=== PATIENT | male | born 1975 | race Two or more races ===

== ENCOUNTER 2017-04-09 21:05 | Emergency (ER) | payer SELFPAY ==
[2017-04-09 21:28] VITALS: BP 146/85; PULSE 108; TEMP 101.7; BMI 30.2
[2017-04-09] MEDS ORDERED: IBUPROFEN 600 MG TABLET (FP) PO ONE ×2 (22:23→22:25)
--- NOTE | 2017-04-09 22:29 | PDOC ---
History of Present Illness - General Chief Complaint: Sore Throat Stated Complaint: PAIN Time Seen by Provider: 04/09/17 22:02 History Source: Patient Exam Limitations: No Limitations - History of Present Illness Initial Comments: 04/09/17 22:29 CHIEF COMPLAINT: Fever HISTORY OF PRESENT ILLNESS: This is an otherwise healthy 42 year old male who presents for evaluation of subjective fever, headache, and throat pain since last night. He denies difficulty breathing, neck pain/stiffness, n/v/d, or any other symptoms. He denies recent travel and known sick contacts. V/s on arrival are notable for T 101.7 and P 108. REVIEW OF SYSTEMS: GENERAL/CONSTITUTIONAL: Subjective fevers. No weakness. No weight change. HEAD, EYES, EARS, NOSE AND THROAT: Throat pain, bilateral ear pain, painful swallowing. CARDIOVASCULAR: No chest pain or palpitations. RESPIRATORY: No cough, wheezing, or shortness of breath. GASTROINTESTINAL: No nausea, vomiting, diarrhea or constipation. GENITOURINARY: No dysuria, frequency, or change in urination. MUSCULOSKELETAL: No joint or muscle swelling or pain. No neck or back pain. SKIN: No rash or easy bruising. NEUROLOGIC: No headache, vertigo, loss of consciousness, or loss of sensation. ALLERGIC/IMMUNOLOGIC: No hives or skin allergy. No latex allergy. PHYSICAL EXAM: GENERAL: The patient is awake, alert, and fully oriented, in no acute distress. ENT: Tonsils 3+ and erythematous with yellow exudate. Uvula midline. No drooling , stridor, or hot potato voice. LUNGS: Clear to auscultation bilaterally. Normal excursion. No respiratory distress or use of accessory muscles. CV: RRR, S1/S2, no MRG. Cap refill < 2 sec. ABDOMEN: Soft, non-distended, non-tender. EXTREMITIES: Normal range of motion, no edema. NEUROLOGICAL: Normal speech, normal gait. CN II-XII grossly intact. PSYCH: Normal mood, normal affect. SKIN: Warm, dry, normal turgor, no rashes or lesions noted. Past History - Past Medical History Allergies/Adverse Reactions: Allergies Allergy/AdvReac Type Severity Reaction Status Date / Time No Known Allergies Allergy Verified 04/09/17 21:25 Home Medications: Ambulatory Orders Ibuprofen 600 mg PO Q6H PRN #30 tablet 04/09/17 Other medical history: Pt denies - Psycho/Social/Smoking Cessation Hx Suicidal Ideation: No Smoking History: Never smoked Have you smoked in the past 12 months: No Information on smoking cessation initiated: No Hx Alcohol Use: No Drug/Substance Use Hx: No Substance Use Type: None *Physical Exam - Vital Signs Last Vital Signs Temp Pulse Resp BP Pulse Ox 101.7 F H 108 H 20 146/85 98 04/09/17 21:26 04/09/17 21:26 04/09/17 21:26 04/09/17 21:26 04/09/17 21:26 Medical Decision Making - Medical Decision Making 04/09/17 23:32 gitis.A/P: 42 year old male with tonsillitis/pharyngitis. -Rapid strep positive -Bicillin 1.2 million units IM -Decadron 10mg PO x 1 for tonsillar swelling -Ibuprofen 600mg PO for pain/fever *DC/Admit/Observation/Transfer Diagnosis at time of Disposition: Strep throat - Discharge Dispostion Disposition: HOME Condition at time of disposition: Improved Admit: No - Prescriptions Prescriptions: Ibuprofen 600 mg PO Q6H PRN #30 tablet PRN Reason: Fever Or Pain - Referrals Referrals: Fozia Tristan MD [Staff Physician] - - Patient Instructions Printed Discharge Instructions: DI for Strep Throat Additional Instructions: -You were given a one-time dose of antibiotics and steroids for strep throat -Take ibuprofen as prescribed for fever and pain -Follow up with a primary care doctor (referral enclosed) -Return here if you are unable to swallow fluids, if you have difficulty breathing, or if you have any other concerning symptoms Print Language: YI - Post Discharge Activity Work/School Note: Back to Work
[2017-04-09] MEDS ORDERED: PENICILLIN G BENZATHINE 1,200,000 UNIT/2 ML PFS IM ONE (22:52)
[2017-04-09] MEDS ORDERED: DEXAMETHASONE LIQUID 0.5 MG/5 ML 240 ML BULK BOTTLE PO ONE (22:52)
[2017-04-09] MEDS ORDERED: PENICILLIN G BENZATHINE 2,400,000 UNIT/4 ML PFS ONE (22:53)
[2017-04-09] MEDS ORDERED: DEXAMETHASONE SOD PHOSPHATE 10 MG/1 ML VIAL ONE (22:57)
== END 2017-04-09 23:05 | disposition home or self-care (01) ==
LOC: JERFT 21:05
DX: J02.0 Streptococcal pharyngitis (principal); B95.0 Streptococcus, group A, as the cause of diseases classified elsewhere
CPT/HCPCS: 87070; 87430; 87804; 99281-25

== ENCOUNTER 2017-04-15 19:47 | Inpatient (IN) | payer MEDICARE ==
[2017-04-15] MEDS ORDERED: ACETAMINOPHEN 1000 MG/100 ML VIAL (NON FORMULARY) IVPB ONE (20:33)
[2017-04-15] MEDS ORDERED: ACETAMINOPHEN INJECTION 100 ML IVPB ONE (20:41)
[2017-04-15 20:44] LABS: BASOPHIL 0.4 % (0-2.0); EOSINOPHIL 0.5 % (0-4.5); MCH 30.6 pg (25.7-33.7); MCHC 34.6 g/dl (32.0-35.9); MEAN CELL VOLUME 88.5 fl (80-96); MEAN PLT VOLUME 8.9 fl (7.5-11.1); NEUTROPHILS 81.3 % (42.8-82.8); PLATELET COUNT 231 K/MM3 (134-434); RDW 12.2 % (11.9-15.9); WHITE BLOOD COUNT 10.6 K/mm3 (4.0-10.0)
[2017-04-15] MEDS ORDERED: SODIUM CHLORIDE 1,000 ML IV STA (21:24)
--- NOTE | 2017-04-15 21:25 | PDOC ---
History of Present Illness <Roseyln Soto - Last Filed: 04/16/17 01:28> <Garfield Simms - Last Filed: 04/16/17 04:26> - History of Present Illness Initial Comments: 04/15/17 21:24 "The patient is a 42 year old male, with no significant past medical history, who was recently seen in the ED on 04/09/17 for fever and sore throat (given Bicillin and Decadron for a + rapid strep test), who presents to the emergency room tonight, 6 days later, with a persistent fever, sore throat, and right sided neck pain. He reports that the sore throat is exacerbated when swallowing. The patient states that he has been taking ibuprofen for the pain, which hasn't provided any relief. He denies any drooling or voice changes. No difficulty swallowing or breathing. Denies chest pain, SOB, cough. Denies nausea, vomiting. Denies back pain. Denies rash. 04/16/17 03:36 <Sylvester Robert - Last Filed: 04/18/17 14:36> - General Chief Complaint: Pain, Acute Stated Complaint: NECK PAIN/ HEADACHE Time Seen by Provider: 04/15/17 20:08 Past History <Roselyn Soto - Last Filed: 04/16/17 01:28> <Garfield Simms - Last Filed: 04/16/17 04:26> - Suicide/Smoking/Psychosocial Hx Smoking History: Never smoked Have you smoked in the past 12 months: No Information on smoking cessation initiated: No Hx Alcohol Use: No Drug/Substance Use Hx: No Substance Use Type: None <Sylvester Robert - Last Filed: 04/18/17 14:36> - Past Medical History Allergies/Adverse Reactions: Allergies Allergy/AdvReac Type Severity Reaction Status Date / Time No Known Allergies Allergy Verified 04/09/17 21:25 Home Medications: Ambulatory Orders Ibuprofen 600 mg PO Q6H PRN #30 tablet 04/09/17 Miscellaneous Medical Supply [Outpatient Order] 1 each ASDIR #1 misc Review of Systems - Review of Systems Comments:: 04/15/17 21:47 "GENERAL/CONSTITUTIONAL: +fever,. No weakness. HEAD, EYES, EARS, NOSE AND THROAT: +sore throat. No change in vision. No ear pain or discharge. CARDIOVASCULAR: No chest pain or shortness of breath. RESPIRATORY: No cough, wheezing, or hemoptysis. GASTROINTESTINAL: No nausea, vomiting, diarrhea or constipation. GENITOURINARY: No dysuria, frequency, or change in urination. MUSCULOSKELETAL: +left neck pain that radiates to the left side of the head behind the ear. No back pain. SKIN: No rash NEUROLOGIC: No headache, vertigo, loss of consciousness, or change in strength/ sensation. ENDOCRINE: No increased thirst. No abnormal weight change. HEMATOLOGIC/LYMPHATIC: No anemia, easy bleeding, or history of blood clots. ALLERGIC/IMMUNOLOGIC: No hives or skin allergy. " <Sylvester Robert - Last Filed: 04/18/17 14:36> *Physical Exam - Vital Signs Last Vital Signs Temp Pulse Resp BP Pulse Ox 100 F H 125 H 19 114/80 98 04/15/17 19:51 04/15/17 19:51 04/15/17 19:51 04/15/17 19:51 04/15/17 19:51 <Roselyn Soto - Last Filed: 04/16/17 01:28> - Vital Signs Last Vital Signs Temp Pulse Resp BP Pulse Ox 97.8 F 66 18 116/67 99 04/16/17 02:35 04/16/17 02:35 04/16/17 02:35 04/16/17 02:35 04/16/17 02:35 <Garfield Simms - Last Filed: 04/16/17 04:26> - Vital Signs Last Vital Signs Temp Pulse Resp BP Pulse Ox 100 F H 125 H 19 114/80 98 04/15/17 19:51 04/15/17 19:51 04/15/17 19:51 04/15/17 19:51 04/15/17 19:51 - Physical Exam Comments: 04/15/17 21:47 "GENERAL: Awake, alert, and fully oriented, in no acute distress HEAD: No signs of trauma EYES: PERRLA, EOMI, sclera anicteric, conjunctiva clear ENT: +posterior oropharynx with white exudates. Midline uvula. No peritonsillar masses. Auricles normal inspection, TMs normal, hearing grossly normal, nares patent, Moist mucosa, NO mastoid TTP NECK: +cervical lymphadenopathy. No fluctuance. Nontender, no stepoffs, Normal ROM, supple, JVD, or masses LUNGS: Breath sounds equal, clear to auscultation bilaterally. No wheezes, and no crackles HEART: Regular rate and rhythm, normal S1 and S2, no murmurs, rubs or gallops ABDOMEN: Soft, nontender, normoactive bowel sounds. No guarding, no rebound. No masses EXTREMITIES: Normal range of motion, no edema. No clubbing or cyanosis. No cords, erythema, or tenderness NEUROLOGICAL: Cranial nerves II through XII intact. 5/5 strength and sensation in all extremities, Normal speech, normal gait SKIN: Warm, Dry, normal turgor, no rashes or lesions noted." <JakobSylvester - Last Filed: 04/18/17 14:36> ED Treatment Course - LABORATORY CBC & Chemistry Diagram: 04/15/17 20:40 04/15/17 20:40 - ADDITIONAL ORDERS Additional order review: Laboratory Results 04/15/17 20:40 Sodium 135 L Potassium 4.0 Chloride 104 Carbon Dioxide 25 Anion Gap 6 L BUN 15 Creatinine 0.9 Creat Clearance w eGFR > 60 Random Glucose 132 H Calcium 8.1 L Total Bilirubin 0.4 AST 38 H ALT 72 Alkaline Phosphatase 174 H Total Protein 6.9 Albumin 3.0 L 04/15/17 23:00 Group A Strep Rapid Antigen - Final Throat 04/15/17 20:40 RBC 4.27 MCV 88.5 MCHC 34.6 RDW 12.2 MPV 8.9 Neutrophils % 81.3 Lymphocytes % 9.3 Monocytes % 8.5 Eosinophils % 0.5 Basophils % 0.4 - RADIOLOGY Radiograph Interpretation: 04/16/17 01:28 EXAM: CT neck with contrast No abscess. Mild diffuse oropharyngeal soft tissue thickening. Right thyroid lobe is enlarged relative and heterogeneous to the left and there is suggestion of trace nonspecific fluid surrounding right. Thyroid sonogram may be helpful as clinically indicated. Query thyroiditis. Epiglottis not thickened. No neck mass. No lymphadenopathy. Parotid and submandibular glands are normal. Major vasculature of the neck is patent. Bones without acute abnormality. Visualized paranasal sinuses and mastoids clear. THIS DOCUMENT HAS BEEN ELECTRONICALLY SIGNED Balaji Elliott D.O. 04/16/2017 01:19 EST - Medications Given in the ED: ED Medications Discontinued Medications Generic Name Dose Route Start Last Admin Trade Name Val PRN Reason Stop Dose Admin Acetaminophen 1,000 mg 04/15/17 20:33 04/15/17 20:41 Ofirmev Injection - IVPB 04/15/17 20:34 1,000 mg ONCE ONE Administration Sodium Chloride 1,000 mls @ 1,000 mls/hr 04/15/17 21:24 04/15/17 21:29 Normal Saline - IV 04/15/17 22:23 1,000 mls/hr ASDIR STA Administration <Roselyn Soto - Last Filed: 04/16/17 01:28> - LABORATORY CBC & Chemistry Diagram: 04/15/17 20:40 04/15/17 20:40 - ADDITIONAL ORDERS Additional order review: Laboratory Results 04/15/17 20:40 Sodium 135 L Potassium 4.0 Chloride 104 Carbon Dioxide 25 Anion Gap 6 L BUN 15 Creatinine 0.9 Creat Clearance w eGFR > 60 Random Glucose 132 H Calcium 8.1 L Total Bilirubin 0.4 AST 38 H ALT 72 Alkaline Phosphatase 174 H Total Protein 6.9 Albumin 3.0 L 04/15/17 23:00 Group A Strep Rapid Antigen - Final Throat 04/15/17 20:40 RBC 4.27 MCV 88.5 MCHC 34.6 RDW 12.2 MPV 8.9 Neutrophils % 81.3 Lymphocytes % 9.3 Monocytes % 8.5 Eosinophils % 0.5 Basophils % 0.4 - Medications Given in the ED: ED Medications Discontinued Medications Generic Name Dose Route Start Last Admin Trade Name Val PRN Reason Stop Dose Admin Acetaminophen 1,000 mg 04/15/17 20:33 04/15/17 20:41 Ofirmev Injection - IVPB 04/15/17 20:34 1,000 mg ONCE ONE Administration Dexamethasone Sodium Phosphate 10 mg 04/16/17 01:26 04/16/17 01:53 Decadron Injection - IVPUSH 04/16/17 01:27 10 mg ONCE ONE Administration Sodium Chloride 1,000 mls @ 1,000 mls/hr 04/15/17 21:24 04/15/17 21:29 Normal Saline - IV 04/15/17 22:23 1,000 mls/hr ASDIR STA Administration Clindamycin Phosphate 300 mg/ 50 mls @ 100 mls/hr 04/16/17 01:42 04/16/17 01:53 Dextrose IVPB 04/16/17 02:11 100 mls/hr ONCE ONE Administration <Garfield Simms - Last Filed: 04/16/17 04:26> - LABORATORY CBC & Chemistry Diagram: 04/17/17 06:35 04/16/17 06:00 - ADDITIONAL ORDERS Additional order review: 04/15/17 20:40 RBC 4.27 MCV 88.5 MCHC 34.6 RDW 12.2 MPV 8.9 Neutrophils % 81.3 Lymphocytes % 9.3 Monocytes % 8.5 Eosinophils % 0.5 Basophils % 0.4 - RADIOLOGY Radiology Studies Ordered: Category Date Time Status SOFT TISSUE NECK CT WITH CONTR [CT] Stat CT Scan 04/15/17 20:33 Ordered - Medications Given in the ED: ED Medications Discontinued Medications Generic Name Dose Route Start Last Admin Trade Name Freq PRN Reason Stop Dose Admin Acetaminophen 1,000 mg 04/15/17 20:33 04/15/17 20:41 Ofirmev Injection - IVPB 04/15/17 20:34 1,000 mg ONCE ONE Administration <Sylvester Robert - Last Filed: 04/18/17 14:36> Medical Decision Making - Medical Decision Making 04/16/17 04:10 Microblogged Hospitalist & called 3x with no response. Awaiting callback. <Garfield Simms - Last Filed: 04/16/17 04:26> - Medical Decision Making 04/15/17 21:48 42 M with strep pharyngitis diagnosed 6 days ago, presenting with persistent throat pain and fevers despite treatment with bicillin. Pt febrile here. Will need imaging to r/o abscess given persistent symptoms after tx. - Labs - CT neck soft tissue 04/16/17 03:06 CT neck with no evidence of abscess. However, R thyroid lobe is found to be enlarged, heterogeneous, concerning for thyroiditis. Given context of fevers and neck pain, I am concerned for infectious thyroiditis. Pt started on IV clindamycin. Will admit for IV abx and reassessment. Will likely need thyroid US. 04/16/17 05:[address] Burris, pt accepted for admission. Case discussed in detail with admitting physician including history, physical exam and ancillary studies. Admitting physician has assumed care for the patient and will follow all pending diagnostics and complete the evaluation and treatment. <Sylvester Robert - Last Filed: 04/18/17 14:36> *DC/Admit/Observation/Transfer <Roselyn Soto - Last Filed: 04/16/17 01:28> <Garfield Simms - Last Filed: 04/16/17 04:26> <Sylvester Robert - Last Filed: 04/18/17 14:36> Diagnosis at time of Disposition: Thyroiditis - Discharge Dispostion Disposition: HOME Condition at time of disposition: Improved - Prescriptions
[2017-04-15 21:31] LABS: ANION GAP 6 (8-16); CALCIUM 8.1 mg/dL (8.5-10.1); CO2 25 mmol/L (21-32); GLUCOSE,RANDOM 132 mg/dL (74-106)
[2017-04-15 21:34] LABS: ALK PHOS 174 U/L (45-117); BILIRUBIN,TOTAL 0.4 mg/dL (0.2-1.0); CREATININE 0.9 mg/dL (0.7-1.3); SGOT/AST 38 U/L (15-37); SGPT/ALT 72 U/L (12-78); TOT PROT 6.9 g/dl (6.4-8.2)
[2017-04-16] MEDS ORDERED: DEXAMETHASONE SOD PHOSPHATE 10 MG/1 ML VIAL IVPUSH ONE (01:26)
[2017-04-16] MEDS ORDERED: CLINDAMYCIN IVPB 300 MG in DEXTROSE 5%-WATER - 48 ML IVPB ONE (01:42)
[2017-04-16] MEDS ORDERED: CLINDAMYCIN 600MG PREMIX IVPB 50 ML IVPB ONE (01:47)
[2017-04-16] MEDS ORDERED: DEXAMETHASONE SOD PHOSPHATE 10 MG/1 ML VIAL ONE (01:47)
[2017-04-16] MEDS ORDERED: ACETAMINOPHEN 325 MG TABLET (FP) PO PRN (05:53)
[2017-04-16] MEDS: SODIUM CHLORIDE 1,000 ML IV SCH ×2 (06:08→17:15)
--- NOTE | 2017-04-16 06:08 | HP ---
CHIEF COMPLAINT: Neck pain and fever x 2 weeks PCP: NONE HISTORY OF PRESENT ILLNESS: 42 year old male that presents to the emergency department c/o right sided neck pain, difficulty swallowing and chills x approximately 2 weeks. He was seen on 04/09 in the ED, diagnosed with strep throat by rapid test and given Bicillin and Decadron with instructions to follow up as outpatient. He now comes back with persistent fever . 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 Family History: no history of premature CAD Allergies No Known Allergies Allergy (Verified 04/09/17 21:25) HOME MEDICATIONS: Home Medications Medication Instructions Recorded Ibuprofen 600 mg PO Q6H PRN #30 tablet 04/09/17 REVIEW OF SYSTEMS CONSTITUTIONAL: Absent: loss of appetite, weight change HEENT: see HPI CARDIOVASCULAR: Absent: chest pain, syncope, palpitations, irregular heart rate, lightheadedness , peripheral edema RESPIRATORY: Absent: cough, shortness of breath, dyspnea with exertion, orthopnea, wheezing, stridor, hemoptysis GASTROINTESTINAL: Absent: abdominal pain, abdominal distension, nausea, vomiting, diarrhea, constipation, melena, hematochezia GENITOURINARY: Absent: dysuria, frequency, urgency, hesitancy, hematuria, flank pain, genital pain MUSCULOSKELETAL: Absent: myalgia, arthralgia, joint swelling, back pain, neck pain SKIN: Absent: rash, itching, pallor HEMATOLOGIC/IMMUNOLOGIC: Absent: easy bleeding, easy bruising, lymphadenopathy, frequent infections ENDOCRINE: Absent: unexplained weight gain, unexplained weight loss, heat intolerance, cold intolerance NEUROLOGIC: Absent: headache, focal weakness or paresthesias, dizziness, unsteady gait, seizure, mental status changes, bladder or bowel incontinence PSYCHIATRIC: Absent: anxiety, depression, suicidal or homicidal ideation, hallucinations. PHYSICAL EXAMINATION Vital Signs - 24 hr 04/15/17 04/16/17 19:51 02:35 Temperature 100 F H 97.8 F Pulse Rate 125 H Pulse Rate [ 66 Right Apical] Respiratory 19 18 Rate Blood Pressure 114/80 Blood Pressure 116/67 [Right Arm] O2 Sat by Pulse 98 99 Oximetry (%) HEAD: No signs of trauma EYES: PERRLA, EOMI, sclera anicteric, conjunctiva clear ENT: +posterior oropharynx with white exudates. Midline uvula. No peritonsillar masses. Auricles normal inspection, TMs normal, hearing grossly normal, nares patent, Moist mucosa, NO mastoid TTP NECK: +cervical lymphadenopathy. No fluctuance. Nontender, no stepoffs, Normal ROM, supple, JVD, or masses LUNGS: Breath sounds equal, clear to auscultation bilaterally. No wheezes, and no crackles HEART: Regular rate and rhythm, normal S1 and S2, no murmurs, rubs or gallops ABDOMEN: Soft, nontender, normoactive bowel sounds. No guarding, no rebound. No masses EXTREMITIES: Normal range of motion, no edema. No clubbing or cyanosis. No cords, erythema, or tenderness NEUROLOGICAL: Cranial nerves II through XII intact. 5/5 strength and sensation in all extremities, Normal speech, normal gait SKIN: Warm, Dry, normal turgor, no rashes or lesions noted. Laboratory Results - last 24 hr 04/15/17 04/15/17 20:40 20:40 WBC 10.6 H RBC 4.27 Hgb 13.1 Hct 37.8 MCV 88.5 MCH 30.6 MCHC 34.6 RDW 12.2 Plt Count 231 MPV 8.9 Neutrophils % 81.3 Lymphocytes % 9.3 Monocytes % 8.5 Eosinophils % 0.5 Basophils % 0.4 Sodium 135 L Potassium 4.0 Chloride 104 Carbon Dioxide 25 Anion Gap 6 L BUN 15 Creatinine 0.9 Creat Clearance w eGFR > 60 Random Glucose 132 H Calcium 8.1 L Total Bilirubin 0.4 AST 38 H ALT 72 Alkaline Phosphatase 174 H Total Protein 6.9 Albumin 3.0 L EXAM: CT neck with contrast No abscess. Mild diffuse oropharyngeal soft tissue thickening. Right thyroid lobe is enlarged relative and heterogeneous to the left and there is suggestion of trace nonspecific fluid surrounding right. Thyroid sonogram may be helpful as clinically indicated. Query thyroiditis. Epiglottis not thickened. No neck mass. No lymphadenopathy. Parotid and submandibular glands are normal. Major vasculature of the neck is patent. Bones without acute abnormality. Visualized paranasal sinuses and mastoids clear. ASSESSMENT/PLAN: 1. Acute infectious thyroididtis - suspected to be streptococcal etiology. Failure of treatment and progressed despite treatment with IM Bicillin . - pain control with PRN tylenol - IV clindamycin - blood cultures - ENT evaluation - US thyroid - IV fluids 2. Streptococcal Pharyngitis 3. SIRS/fever 2/2 above Due to failure of treatment with outpatient IM antibiotics , progression of the disease despite outpatient treatment and plan of care that includes frequent administration of IV clindamycin, anticipated length of hospitalization is greater then two midnights. Will admit as an inpatient . Visit type - Emergency Visit Emergency Visit: Yes ED Registration Date: 04/16/17 Care time: The patient presented to the Emergency Department on the above date and was hospitalized for further evaluation of their emergent condition. - New Patient This patient is new to me today: Yes Date on this admission: 04/16/17 - Critical Care Critical Care patient: No
[2017-04-16 06:12] LABS: MCH 30.9 pg (25.7-33.7); MCHC 34.4 g/dl (32.0-35.9); MEAN CELL VOLUME 89.8 fl (80-96); MEAN PLT VOLUME 9.2 fl (7.5-11.1); PLATELET COUNT 235 K/MM3 (134-434); RDW 12.6 % (11.9-15.9); WHITE BLOOD COUNT 6.5 K/mm3 (4.0-10.0)
[2017-04-16 06:38] LABS: ANION GAP 8 (8-16); CALCIUM 8.5 mg/dL (8.5-10.1); CO2 22 mmol/L (21-32); CREATININE 0.6 mg/dL (0.7-1.3); GLUCOSE,RANDOM 178 mg/dL (74-106)
[2017-04-16 07:54] VITALS: BMI 29.9
[2017-04-16] MEDS ORDERED: FLU VACCINE QUAD 60 MCG/0.5 ML (MDV 17-18) IM ONE (10:00)
[2017-04-16] MEDS ORDERED: CLINDAMYCIN 600MG PREMIX IVPB 50 ML IVPB SCH (10:00)
--- NOTE | 2017-04-16 10:15 | PN ---
Progress Note (short form) - Note Progress Note: ID This 42 year old [place] male presents with right ant cervical neck pain. On he was seen in our ER with fever above 101 and exudative tonsillitis. His rapid strep test positive but culture negative at that time. he got Bicillin injection per [employer] followed by oral antibiotic and sent home. His throat pain improved but now he presents with right neck pain with no fever and normal WBC count. Denies other medical problems. LIves with his brother and roommates HIV status unknown. CT neck shows thyromegaly. Selected Entries 04/15/17 04/16/17 04/16/17 19:51 02:35 05:50 Temperature 97.8 F 98 F Pulse Rate 125 H Blood Pressure 114/80 O2 Sat by Pulse 98 Oximetry (%) 04/16/17 07:46 Temperature 99.4 F Pulse Rate Blood Pressure O2 Sat by Pulse Oximetry (%) HEENT Throat appeared benign Neck supple with fullness right cervical area no mass or nodes appreciated Lung Clear Cor S1 S2 RR Abd Soft nontender Laboratory Tests 04/15/17 04/16/17 04/16/17 20:40 06:00 06:00 WBC 6.5 D Hgb 13.5 Plt Count 235 BUN 10 D Creatinine 0.6 L D AST 38 H ALT 72 Alkaline Phosphatase 174 H Assessment Recent Strep Ag positive ( culture) Thromegaly with new onset of ? thyroid pain Plan PCN VK 500mg qid CRP TSH ESR HIV AB ENT consult stop Clindayaudra Coe MD Problem List - Problems (1) Strep throat Code(s): J02.0 - STREPTOCOCCAL PHARYNGITIS (2) Thyroiditis Code(s): E06.9 - THYROIDITIS, UNSPECIFIED
[2017-04-16] MEDS: PENICILLIN V POTASSIUM 500 MG TABLET PO SCH ×2 (11:45→17:13)
[2017-04-16 11:51] LABS: HIV 1 & 2 AB NEGATIVE; HIV 1 AGp24 NEGATIVE
[2017-04-16] MEDS ORDERED: PT OWN MED DRAWER 7, Y5N ONE ×3 (11:52→17:21)
--- NOTE | 2017-04-16 16:14 | PN ---
Teaching Attending Note Name of Resident: Dona Posadas ATTENDING PHYSICIAN STATEMENT I saw and evaluated the patient. I reviewed the resident's note and discussed the case with the resident. I agree with the resident's findings and plan as documented. SUBJECTIVE: no fever or chills , has no abd pain . no BN/V . no sore throat . OBJECTIVE: NAD HEENT: MMM, hard to visualize the tonsils due to large tongue. small exudate on upper R tonsil . no LAP in neck. R thriroid lobe with enlargement , but no tenderness to palpation CV: RRR Lungs : CTAB. Ext : no edema. ASSESSMENT AND PLAN: 42 y/o gentleman with h/o recent diagnosis of Strep A pharyngitis who presented with R neck pain . 1- Possible infectious/supporative thyroiditis affecting R lobe. Likely through local spreading of bacteria. CT with stranding of R lobe and US with 2 masses. What does not not fit the infecious picture is the absence of tenderness on exam. TUmors are less likely . No pharyngeal abscess on CT scnan - cont PCN VK . - ENT consulted . - Need aspiration of the R thyroid lobe - although there is evidence of hyperthyroidism, ( low TSH), but there is no indication for treatment due to absence of symptoms, and due to the transient course. - need TFTS as outpt in 4 weeks
--- NOTE | 2017-04-16 20:00 | PN ---
Physical Exam: SUBJECTIVE: Patient seen and examined No new complaints. Has no more neck pain, fevers or difficulty swallowing. OBJECTIVE: Vital Signs Period Temp Pulse Resp BP Sys/Davis Pulse Ox Last 24 Hr 98 F-99.4 F 68-101 16-20 104-119/59-62 98-98 GENERAL: The patient is awake, alert, and fully oriented, in no acute distress. HEAD: Normal with no signs of trauma. EYES: PERRL, extraocular movements intact, sclera anicteric, conjunctiva clear. No ptosis. ENT: Sore seen on right tonsil. No visible exudates. Ears normal, nares patent, oropharynx clear without exudates, moist mucous membranes. NECK: R neck swelling that moves with swallowing. No bruit heard. Soft to firm to touch, non tender, smooth regular, no palpable nodules or lymph nodes. LUNGS: Breath sounds equal, clear to auscultation bilaterally, no wheezes, no crackles, no accessory muscle use. HEART: Regular rate and rhythm, S1, S2 without murmur, rub or gallop. ABDOMEN: Soft, nontender, nondistended, normoactive bowel sounds, no guarding, no rebound, no hepatosplenomegaly, no masses. EXTREMITIES: 2+ pulses, warm, well-perfused, no edema. NEUROLOGICAL: Cranial nerves II through XII grossly intact. Normal speech, gait not observed. PSYCH: Normal mood, normal affect. SKIN: Warm, dry, normal turgor, no rashes or lesions noted Laboratory Results - last 24 hr 04/16/17 04/16/17 04/16/17 06:00 06:00 10:38 WBC 6.5 D RBC 4.38 Hgb 13.5 Hct 39.3 MCV 89.8 MCH 30.9 MCHC 34.4 RDW 12.6 Plt Count 235 MPV 9.2 Sodium 139 Potassium 4.2 Chloride 109 H Carbon Dioxide 22 Anion Gap 8 BUN 10 D Creatinine 0.6 L D Random Glucose 178 H D Calcium 8.5 C-Reactive Protein HIV 1&2 Antibody Screen Negative HIV P24 Antigen Negative 04/16/17 10:38 WBC RBC Hgb Hct MCV MCH MCHC RDW Plt Count MPV Sodium Potassium Chloride Carbon Dioxide Anion Gap BUN Creatinine Random Glucose Calcium C-Reactive Protein 12.5 H HIV 1&2 Antibody Screen HIV P24 Antigen Active Medications Generic Name Dose Route Start Last Admin Trade Name Saulq PRN Reason Stop Dose Admin Acetaminophen 650 mg 04/16/17 05:53 Tylenol - PO Q8H PRN PAIN LEVEL 6-10 Sodium Chloride 1,000 mls @ 100 mls/hr 04/16/17 06:00 04/16/17 17:15 Normal Saline - IV 100 mls/hr ASDIR FOSTER Administration Penicillin V Potassium 500 mg 04/16/17 12:00 04/16/17 17:13 Pen Vee K - PO 500 mg Q6HPO FOSTER Administration ASSESSMENT/PLAN: 42 y/o gentleman with h/o recent diagnosis of Strep A pharyngitis who presented with R neck pain . # Possible infectious/suppurative thyroiditis affecting R lobe; non-tender Likely secondary to Strep throat infection through local spreading of bacteria. CT with stranding of R lobe and US with 2 masses. No pharyngeal abscess on CT scan - cont PCN VK . - ENT consulted . - Need aspiration of the R thyroid lobe - although there is evidence of hyperthyroidism, ( low TSH), but there is no indication for treatment due to absence of symptoms, and due to the transient course. - need TFTS as outpt in 4 weeks Visit type - Emergency Visit Emergency Visit: Yes ED Registration Date: 04/16/17 Care time: The patient presented to the Emergency Department on the above date and was hospitalized for further evaluation of their emergent condition. - New Patient This patient is new to me today: Yes Date on this admission: 04/16/17 - Critical Care Critical Care patient: No - Discharge Referral Referred to [facility] Med P.C.: No
[2017-04-17] MEDS: PENICILLIN V POTASSIUM 500 MG TABLET PO SCH ×4 (00:11→17:22)
[2017-04-17] MEDS: SODIUM CHLORIDE 1,000 ML IV SCH (04:00)
[2017-04-17 08:18] LABS: MCH 30.6 pg (25.7-33.7); MCHC 34.5 g/dl (32.0-35.9); MEAN CELL VOLUME 88.7 fl (80-96); MEAN PLT VOLUME 8.9 fl (7.5-11.1); PLATELET COUNT 232 K/MM3 (134-434); RDW 12.5 % (11.9-15.9); WHITE BLOOD COUNT 6.8 K/mm3 (4.0-10.0)
[2017-04-17] MEDS ORDERED: PT OWN MED DRAWER 7, Y5N ONE (12:39)
--- NOTE | 2017-04-17 15:38 | CON.ENT ---
Consult Consult Specialty:: ENT - History of Present Illness Chief Complaint: evaluate throat History of Present Illness: 42M no prior hx of throat problems. Nonsmoker. No hx radiation Presented to ER last week with throat pain. Rapid strep reportedly positive though two cultures both negative for strep.Treated with abx. Patient indicates he did NOT have any sore throat or dysphagia at the time; rather he felt pain in his right lower neck (points to thyroid) above clavicle in lower neck. Admitted for ongoing pain, though it has gone away in the last couple of days. Denies: hoarseness, dysphagia, reflux, shortness of breath. - History Source History Provided By: Patient - Alcohol/Substance Use Hx Alcohol Use: No - Smoking History Smoking history: Never smoked Have you smoked in the past 12 months: No Home Medications - Allergies Allergies/Adverse Reactions: Allergies Allergy/AdvReac Type Severity Reaction Status Date / Time No Known Allergies Allergy Verified 04/09/17 21:25 - Home Medications Home Medications: Ambulatory Orders Ibuprofen 600 mg PO Q6H PRN #30 tablet 04/09/17 Propranolol HCl 10 mg PO BID #60 tablet 04/17/17 Review of Systems - Review of Systems HENT: reports: Throat Pain Physical Exam-ENT Vital Signs: Vital Signs Temperature 98.0 F 04/17/17 15:06 Pulse Rate 74 04/17/17 15:06 Respiratory Rate 20 04/17/17 15:06 Blood Pressure 107/67 04/17/17 15:06 O2 Sat by Pulse Oximetry (%) 98 04/17/17 09:00 Constitutional: Yes: Well Nourished, No Distress, Calm, Other (nml voice. no stridor/stertor. no drooling) Head: Yes: WNL Face: Yes: WNL Eyes: Yes: WNL Nose: Yes: WNL Nasal Passage: Yes: WNL Oral/Pharynx: Yes: Other (nml. FOM soft, flat. tonsils 1+/small with NO ulcers, NO exudate, and they are symmetrical. TF/BOT soft to palpation.) Outer Ear: Yes: WNL Ear Canal: Yes: Cerumen Neck: Yes: WNL, Supple, Other (questionable R thyroid fullness. no skin changes. no fluctuance. NT. no induration.) Respiratory: Yes: WNL Neurological: Yes: Other (Cn3-7,11,12 intact, symmetrical) Imaging - Results Cat Scan: Report Reviewed, Image Reviewed (CT reviewed- no sig tonsillar edema. secretes in vallecula. questionable fat stranding over right thryoid. +R thyroid mass.) Other: Other (Flexible Fiberoptic Laryngoscopy: Reviewed rbla. pt consents. Findings: Nml nasophary, hyopharynx, BOT, vallecula. There is mild edema, erythema of postcricoid tissues with some pooling salivary secretions and mild false cord edema. There is normal vocal cord mobility with NO paralysis. no masses/lesions.) Problem List - Problems (1) Thyroiditis Assessment/Plan: R lower neck pain last week, diagnosed with streptococcal tonsillitis though culture negative. Received abx. - Clinically denies having (or having had) sore throat, lowering my suspicion for tonsillitis. No evidence of MEDICAL ECONOMICS CONSULTANT. The questionable inflammatory changes on CT , I feel, or over-called. There is NO tonsillitis or ulceration on examination. - Given the incredibly low TSH along with his fevers (previously) and tachycardia (prev), this could have been from infectious tonsillitis though also potentially from thyroiditis/thyrotoxicosis. There is questionable fat stranding over the thyroid on my review. Advise checking thyroid hormone levels (ie: free T4, T3), Endocrinology consultation. Consider radioidine testing for hyperactive nodule, though I would defer to Endocrinology. - Note, blood cx's are neg and no mention of IJV occlusion. Low suspicion for direct spread of strep from throat to thyroid, leah given neg culture and neg blood cx. - He could have have a laryngitis as well given mild inflammation of larynx on endoscopy, though absence of hoarseness, cough, dysphagia lowers suspicion. - Agree with FNA of thyroid masses, as done. Followup financial institution manager advised, unless neoplasm/suspicious cells identified. He will definitely need ongoing observation assuming benign FNA and repeat U/S in the future to ensure stability. - FFL done - no vocal cord paralysis - No pathologically enlarged nodes but the diffuse adenopathy is likely reactive and should be observed clinically. Findings discussed with Hospitalist attending present at bedside this morning with me. I am happy to see the patient as an outpatient if there are any ongoing issues. Thank you for this consultation. Code(s): E06.9 - THYROIDITIS, UNSPECIFIED
[2017-04-17 17:09] VITALS: BP 132/76; PULSE 81; TEMP 99
--- NOTE | 2017-04-17 17:11 | PN ---
Teaching Attending Note Name of Resident: Dona Posadas ATTENDING PHYSICIAN STATEMENT I saw and evaluated the patient. I reviewed the resident's note and discussed the case with the resident. I agree with the resident's findings and plan as documented. SUBJECTIVE: no fever or chills. has no palpitations . no neck pain OBJECTIVE: NAD. HEENT: MMM. no LAP in neck. R thryroid lobe with enlargement, but no tenderness to palpation CV: RRR. Lungs: CTAB. Ext: no edema. ASSESSMENT AND PLAN: 42 y/o gentleman with h/o recent diagnosis of Strep A pharyngitis who presented with R neck pain . 1-Thyroiditis affecting R lobe. ENT input appreciated, unlikely infectious in etiology. has elevated TSH but no sx ( tachycardia, tremor, anxity, or hot intolerance) - Throat cx this admission neg - no need for BB . - need TFTs in 4 weeks - need Endocrinology f/u . - need Bx and thyroid scan as out pt - HE was given contact for [facility]. and endo - he was educated about signs and sx of thyrotoxicosis - he understands that the nodules might be benign or malignant . dispo : DC home today
--- NOTE | 2017-04-18 06:52 | DS ---
Physical Exam: SUBJECTIVE: Patient seen and examined No new c/o Was seen by ENT and scoped- no evidence of abscess seen OBJECTIVE: Vital Signs Period Temp Pulse Resp BP Sys/Davis Pulse Ox Last 24 Hr 97.9 F-99 F 69-81 18-20 105-132/67-76 98 PHYSICAL EXAM ENERAL: The patient is awake, alert, and fully oriented, in no acute distress. HEAD: Normal with no signs of trauma. EYES: PERRL, extraocular movements intact, sclera anicteric, conjunctiva clear. No ptosis. ENT: Sore seen on right tonsil. No visible exudates. Ears normal, nares patent, oropharynx clear without exudates, moist mucous membranes. NECK: R neck swelling that moves with swallowing. No bruit heard. Soft to firm to touch, non tender, smooth regular, no palpable nodules or lymph nodes. LUNGS: Breath sounds equal, clear to auscultation bilaterally, no wheezes, no crackles, no accessory muscle use. HEART: Regular rate and rhythm, S1, S2 without murmur, rub or gallop. ABDOMEN: Soft, nontender, nondistended, normoactive bowel sounds, no guarding, no rebound, no hepatosplenomegaly, no masses. EXTREMITIES: 2+ pulses, warm, well-perfused, no edema. NEUROLOGICAL: Cranial nerves II through XII grossly intact. Normal speech, gait not observed. PSYCH: Normal mood, normal affect. SKIN: Warm, dry, normal turgor, no rashes or lesions noted LABS Laboratory Results - last 24 hr 04/17/17 04/17/17 04/17/17 06:35 06:35 06:35 WBC 6.8 RBC 4.25 Hgb 13.0 Hct 37.7 MCV 88.7 MCH 30.6 MCHC 34.5 RDW 12.5 Plt Count 232 MPV 8.9 ESR 72 H Monoscreen Negative HOSPITAL COURSE: Date of Admission:04/16/17 Date of Discharge: 04/18/17 42 y/o gentleman with h/o recent diagnosis of Strep A pharyngitis who presented with R neck pain, and found to have an enlarged R thyroid lobe. At presentation he was tachycardic-125, T-100, leucocytic-10.6 He was rehydrated with Normal Saline and treated intially with clindamycin then penicillin V, pending blood cultures which did not grow any organism. A diagnosis of Possible infectious/non tender suppurative thyroiditis affecting R lobe likely secondary to Strep throat infection through local spreading of bacteria. CT scan of neck showed stranding of R lobe and no pharyngeal abscess was seen. US of the neck showed 2 masses in the R lobe. ENT consult following a scope showed no abscess. Although there was low TSHwas no indication for treatment due to absence of symptoms, and due to the transient course. Patient will do TFTs in 4 weeks and follow up with his PCP Patient needs FNA of the R thyroid lobe Minutes to complete discharge: 43 Discharge Summary Reason For Visit: THYROIDITIS Current Active Problems SIRS (systemic inflammatory response syndrome) (Acute) Strep throat (Acute) Tachycardia (Acute) Thyroiditis (Acute) Condition: Improved - Instructions Diet, Activity, Other Instructions: -You were admitted with a history of fever , difficulty swallowing and R neck pain, following a diagnosis of Strep throat infection for which you received penicillin G. -You were found to have fever and a fast heart rate and were admitted and treated with penicillin V -We noticed that your thyroid gland on the right is enlarged with nodules, but we did not see any collection of pus. there might be some inflammation -We are referring you to the [facility] for a Primary care doctor . [phone]. please call and schedule an appointment early in the week -We are also referring you to see a thyroid specialists, We are giving you some names to choose from: Dr Paulino Delacruz -You will also need to see a specialist for the Ears, Nose and throat. YOu can see Dr. Katz -Repeat Thyroid Function Tests in 4 weeks as an outpatient -You may also need a thyroid scan and for someone to take out part of your thyroid to see what is wrong with it ( biopsy ) Referrals: Prateek Delacruz MD [Staff Physician] - 1 Week Josselin Bob MD [Staff Physician] - 1 Week Matias Katz MD [Staff Physician] - 1 Week Disposition: HOME - Home Medications Comprehensive Discharge Medication List: Ambulatory Orders Ibuprofen 600 mg PO Q6H PRN #30 tablet 04/09/17 Miscellaneous Medical Supply [Outpatient Order] 1 each ASDIR #1 misc This patient is new to me today: No Emergency Visit: Yes ED Registration Date: 04/16/17 Care time: The patient presented to the Emergency Department on the above date and was hospitalized for further evaluation of their emergent condition. Critical Care patient: No - Discharge Referral Referred to [facility] No
== END 2017-04-17 17:00 | disposition home or self-care (01) | DRG 424 ==
LOC: JER 19:47 → JERBED 04-16 05:07 → UNDOADMIN 04-16 06:00 → J8W 04-16 07:42
PROVIDERS: ADMIT Internal Medicine; ATTEND Internal Medicine
PROC: 0CJS8ZZ Inspection of Larynx, Via Natural or Artificial Opening Endoscopic (ICD-10-PCS; principal; 2017-04-17)
DX: E06.0 Acute thyroiditis (principal); M54.2 Cervicalgia; R51 Headache; J02.0 Streptococcal pharyngitis; R65.10 Systemic inflammatory response syndrome (SIRS) of non-infectious origin without acute organ dysfunction; R00.0 Tachycardia, unspecified; F41.8 Other specified anxiety disorders
CPT/HCPCS: 36415; 70491-TC; 76536-TC; 80048; 80053; 84443; 85025; 85027; 85651; 86140; 86308; 87040; 87070; 87389; 87430; 90688; 99284-25; G0008